=== PATIENT | female | born 1945 | race Caucasian/White ===

== ENCOUNTER → 2016-10-11 | Outpatient (CLI) | payer BC ==
[~2016-10-11] MED LIST: ASPI81TA28 PO; CHOL100010 PO; COEN100C7 PO; LISI-461 PO
== END | disposition home or self-care (01) ==
LOC: C.RDSM 12:59
PROVIDERS: ATTEND Orthopaedic Surgery Sports Medicine
DX: T14.8 Other injury of unspecified body region (principal); X58.XXXA Exposure to other specified factors, initial encounter

== ENCOUNTER → 2016-11-01 | Outpatient (CLI) | payer BC | END | disposition home or self-care (01) | LOC: C.RDSM 15:25 | PROVIDERS: ATTEND Orthopaedic Surgery Sports Medicine | DX: Z09 Encounter for follow-up examination after completed treatment for conditions other than malignant neoplasm (principal); Z87.828 Personal history of other (healed) physical injury and trauma ==

== ENCOUNTER → 2017-05-10 | Outpatient (CLI) | payer BC ==
--- NOTE | 2017-05-10 15:22 | DIAGNOSTIC IMAGING REPORT ---
C-SPINE ROUTINE 4 OR 5 VIEWS CLINICAL HISTORY: NECK PAIN decreased range of motion COMPARISON STUDY: 10/01/2016 FINDINGS: No acute fractures or traumatic subluxations are visualized. There are moderately advanced multilevel degenerative changes. Minimal anterolisthesis of C4 on C5 and C5 and C6 is felt to be arthritic. There is left-sided foraminal encroachment due to uncinate spurs the C5-6 and C6-7 levels. On the right there is foraminal narrowing at the C6-7 and C7-T1 levels. IMPRESSION: 1. No acute fractures or traumatic subluxations 2. Moderately advanced multilevel degenerative change. Electronically signed by: Joaquin Aguirre M.D. 05/10/2017 3:21 PM Dictated Date/Time: 05/10/2017 3:19 PM
== END | disposition home or self-care (01) ==
LOC: C.RAD 14:38
PROVIDERS: ATTEND Nurse Practitioner Family
DX: M54.2 Cervicalgia (principal)

== ENCOUNTER → 2018-02-03 | Outpatient (CLI) | payer BC | END | disposition home or self-care (01) | LOC: C.MAMM 08:16 | PROVIDERS: ATTEND Nurse Practitioner Family | DX: M81.0 Age-related osteoporosis without current pathological fracture (principal); M85.851 Other specified disorders of bone density and structure, right thigh; M85.852 Other specified disorders of bone density and structure, left thigh ==